=== PATIENT | female | born 1995 | race Caucasian/White ===

== ENCOUNTER 2016-10-30 05:32 | Emergency (ER) | payer OTHER ==
[~2016-10-30] VITALS: Ht 172.7 cm; Wt 68.0 kg
--- NOTE | 2016-10-30 05:33 | NUR ---
to bed 4 bib paramedics c/o nontraumatic back pain. pt aaox4 no acute distress noted, resp even and unlabored. pt denies urinary or bowel incontinence. pt able to move all extrmeties well. pending er md ann.
--- NOTE | 2016-10-30 06:00 | NUR ---
er md at bedside to eval pt with orders received.
--- NOTE | 2016-10-30 06:14 | NUR ---
started sl 18g to L hand.
[2016-10-30] MEDS ORDERED: HYDROMORPHONE 1 MG/1 ML DISP.SYRIN ONE (06:22)
[2016-10-30] MEDS ORDERED: ONDANSETRON HCL/PF 4 MG/2 ML VIAL ONE (06:22)
[2016-10-30] MEDS ORDERED: ONDANSETRON HCL/PF - ER 4 MG/2 ML VIAL IV ONE (06:30)
[2016-10-30] MEDS ORDERED: HYDROMORPHONE 1 MG/1 ML DISP.SYRIN IV ONE (06:30)
--- NOTE | 2016-10-30 06:32 | NUR ---
MEDICATED PT ORDERED
--- NOTE | 2016-10-30 07:20 | NUR ---
Patient discharged to home in stable condition. Written and verbal after care instructions given. Patient verbalizes understanding of instruction. Patient ambulated with stable gait.
[2016-10-30 08:15] VITALS: BP 112/70
== END 2016-10-30 08:15 | disposition home or self-care (01) ==
LOC: ER 05:34
DX: M54.5 Low back pain (principal); E10.9 Type 1 diabetes mellitus without complications
CPT/HCPCS: 96374; 96375; 99284; A4606; J1170; J2405; Z7610